=== PATIENT | female | born 1960 | race Caucasian/White ===

== ENCOUNTER → 2019-04-24 09:34 | Outpatient (CLI) | payer OTHER, SELFPAY ==
--- NOTE | 2019-04-24 | DI.MRI.S_ITS ---
PROCEDURE: MR ANGIO HEAD WO CON INDICATIONS: Pulsing sensation in right ear TECHNIQUE: Noncontrast axial 3-D [id number] MR angiogram, with 3-dimensional maximum intensity projection (MIP) reformats of the internal carotid arteries and posterior circulation then performed. COMPARISON: [facility], RG, MRI HEAD W/O CONTRAST, 01/30/2019, 17:18. FINDINGS: Image quality: Excellent. Anterior circulation: Intracranial internal carotid arteries demonstrate normal size and intraluminal flow signal. The flow within the paired anterior cerebral arteries is normal and symmetric. The flow within the middle cerebral arteries is normal and symmetric. The anterior communicating artery is seen. No stenoses, occlusions, or aneurysms. In this patient with this given history, scrutiny is given to abnormal vascular loops seen into the internal auditory canals. None can be seen. Posterior circulation: Visualized portions of the vertebral arteries demonstrate normal caliber, and join to form a normal appearing basilar artery. The flow within the posterior cerebral arteries is normal and symmetric. No stenoses, occlusions, or aneurysms. IMPRESSION: Normal intracranial MR angiogram, without findings of abnormal vascular loops into the internal auditory canals to cause pulsatile tinnitus. Dictated by: Riccardo Jay M.D. on 04/24/2019 at 11:01 Approved by: Riccardo Jay M.D. on 04/24/2019 at 11:02
== END ==
PROVIDERS: Visit Provider Otolaryngology
DX: H90.3 Sensorineural hearing loss, bilateral (principal); H93.291 Other abnormal auditory perceptions, right ear
CPT/HCPCS: 70544